=== PATIENT | male | born 1980 | race Caucasian/White ===

== ENCOUNTER 2016-09-14 10:21 | Day surgery (SDC) | payer OTHER ==
--- NOTE | 2016-09-07 13:42 | HISTORY AND PHYSICAL E ---
History and Physical NAME: BILLY ALMEIDA : 1980 AGE: 36Y ADMITTED: 09/14/2016 ROOM: REFERRING: Patient referred to us by GHADA. CHIEF COMPLAINT: A 36-year-old patient with reflux and heartburn. Nexium not helping. SOCIAL HISTORY: Does not smoke. Does not drink. PAST SURGICAL HISTORY: He did have upper scope in [place] and he was told he had grade C esophagitis. PAST MEDICAL HISTORY: 1. He has a left inguinal hernia. 2. right knee. REVIEW OF SYSTEMS: CARDIAC: High cholesterol. ENDOCRINE: Negative. RESPIRATORY: History of obstructive sleep apnea, on CPAP. HEAD, EYES, EARS, NOSE, THROAT: Loss of hearing on the left. GASTROINTESTINAL: Constipation and reflux. ONCOLOGY: Negative. HEMATOLOGY: Negative. NEUROPSYCH: Anxiety. FAMILY HISTORY: Father is alive. Mom is alive. MEDICATIONS: 1. [place]. 2. Aspirin. 3. OxyContin. 4. Vitamin D. 5. Stool softener. 6. Metamucil. 7. Nexium. PHYSICAL EXAMINATION: GENERAL: Pleasant, alert and oriented. VITAL SIGNS: Blood pressure is 120/80, pulse 80, respirations 18, temperature is 98. HEAD, EYES, EARS, NOSE, THROAT: Normal. NECK: Supple. CARDIOVASCULAR: Normal. LUNGS: Clear. ABDOMEN: Soft. NEUROLOGIC: Exam negative. CONCLUSION: 1. Abdominal pain. 2. Reflux. PLAN: Upper scope. Admit 09/14/2016. DICTATING PHYSICIAN: LESLIE HERRERA M.D. [id number] Y#: [id number] ID: [id number] JOB#: [id number] ACCT: [id number] cc:LESLIE HERRERA M.D. >
[~2016-09-14 10:21] MED LIST: EPINEPHRINE INJ 1 MG/10 ML DISP.SYRIN ONE; FENTANYL CITRATE INJ/PF 100 MCG/2 ML AMPUL ONE; FLUMAZENIL INJ 0.5 MG/5 ML VIAL IV ONE; GLYCOPYRROLATE INJ 0.4 MG/2 ML VIAL ONE; NALOXONE HCL INJ/PF 0.4 MG/1 ML SDV ONE; ONDANSETRON HCL INJ/PF 4 MG/2 ML SDV ONE; PROMETHAZINE HCL INJ 25 MG/1 ML VIAL ONE
[2016-09-14] MEDS: MIDAZOLAM 2 MG/2 ML INJ ONE ×4 (10:51→10:59)
--- NOTE | 2016-09-14 11:23 | OPERATIVE REPORT E ---
Operative Report NAME: BILLY ALMEIDA : 1980 AGE: 36Y DATE OF SURGERY: 09/14/2016 ROOM: PREOPERATIVE DIAGNOSIS: Reflux. POSTOPERATIVE DIAGNOSES: 1. Esophagitis, mild. 2. Gastritis, moderate. 3. Duodenitis, mild. OPERATIONS: 1. Esophagoscopy. 2. Gastroscopy. 3. Duodenoscopy. SURGEON: LESLIE HERRERA M.D. ANESTHESIA: Versed 4 mg, fentanyl 100 mcg. TISSUE REMOVED OR ALTERED: Gastric bypass, H. pylori. PROCEDURE: Baby scope passed under guided vision. No difficulties. Esophagogastric junction at 38 cm. Mild esophagitis. No stricture. No ulcers. Gastroscopy: Prepyloric erosions. Erosive gastritis. Biopsy obtained, H. pylori. Duodenoscopy: Mild duodenitis. No ulcers. CONCLUSIONS: 1. Mild esophagitis. 2. Moderate erosive gastritis in the antrum. 3. Duodenitis. DISCHARGE PLAN: Hold aspirin, nonsteroidal. Continue PPI. Awaiting biopsy results. DICTATING PHYSICIAN: LESLIE HERRERA M.D. [id number] PHY#: [id number] ID: [id number] JOB#: [id number] ACCT: [id number] cc:[facility], LESLIE HERRERA M.D. >
[2016-09-14 12:12] VITALS: BP 108/56
--- NOTE | 2016-09-14 12:14 | DISCHARGE SUMMARY E ---
Discharge Summary NAME: BILLY ALMEIDA : 1980 AGE: 36Y ADMITTED: 09/14/2016 DISCHARGED: 09/14/2016 PROCEDURE: EGD and biopsy. HISTORY: This 36-year-old male presented with reflux. Upper scope shows no evidence of ulcers. Patient did have erosive gastritis, mild esophagitis and mild duodenitis. DISCHARGE PLAN: 1. Try to hold aspirin. Patient takes [place]. 2. We will start him on PPI, Nexium. 3. Patient to see us in the office in the next few days. FINAL DIAGNOSIS: Esophagitis, gastritis, duodenitis. PLAN: 1. Nexium 40 mg once daily. 2. Awaiting biopsy results. DICTATING PHYSICIAN: LESLIE HERRERA M.D. [id number] [id number] PHY#: [id number] ID: [id number] JOB#: [id number] ACCT: [id number] cc:LESLIE HERRERA M.D. >
== END 2016-09-14 12:10 | disposition home or self-care (01) ==
LOC: END 10:21
PROVIDERS: ATTEND Specialist
PROC: 0DB68ZX Excision of Stomach, Via Natural or Artificial Opening Endoscopic, Diagnostic (ICD-10-PCS; principal; 2016-09-14 11:00)
DX: K21.0 Gastro-esophageal reflux disease with esophagitis (principal); K29.50 Unspecified chronic gastritis without bleeding; B96.81 Helicobacter pylori [H. pylori] as the cause of diseases classified elsewhere; K29.80 Duodenitis without bleeding; E78.00 Pure hypercholesterolemia, unspecified; J44.9 Chronic obstructive pulmonary disease, unspecified; Z79.82 Long term (current) use of aspirin; Z79.899 Other long term (current) drug therapy; Z98.84 Bariatric surgery status; Z79.891 Long term (current) use of opiate analgesic
CPT/HCPCS: 43239; 88342 ×2; 88305 ×2; J2250; J3010; J2405; J0171; J2310; J2550; J3490

== ENCOUNTER 2019-12-05 01:01 | Emergency (ER) | payer OTHER ==
[2019-12-05] MEDS ORDERED: ONDANSETRON HCL INJ/PF 4 MG/2 ML SDV IV ONE (01:47)
[2019-12-05] MEDS ORDERED: NORMAL SALINE 1000 ML 1,000 ML IV ONE (01:47)
[2019-12-05] MEDS ORDERED: KETOROLAC TROMETHAMINE INJ/PF 30 MG/1 ML SDV IV ONE (01:47)
--- NOTE | 2019-12-05 01:48 | ER Document Report ---
ED General - General Chief Complaint: Abdominal Pain Stated Complaint: ABDOMINAL PAIN/BODY CHILLS Time Seen by Provider: 12/05/19 01:22 Notes: Patient is a 39-year-old male that comes to the emergency department for chief complaint of feeling body aches, chills, and developing sharp pains in waves occasionally across his upper abdomen and lower ribs. Symptoms started earlier today. He also reports he had heartburn earlier. He denies difficulty breathing, he states earlier he was nauseated but he did not vomit. He denies specific back pain but did feel some general aching across his back. He had a headache earlier but not now. He denies sore throat. He did just travel to [place] and recently got back. He states he takes diclofenac for arthritis but no other daily medications, he drinks occasionally, smokes occasionally, den ies recreational drugs. He has had inguinal hernia repair, left hip and bilateral knee replacements. He denies medical history otherwise. He denies any obvious sick contacts. TRAVEL OUTSIDE OF THE [place] IN LAST 30 DAYS: No - Related Data Allergies/Adverse Reactions: No Known Allergies Allergy (Unverified 09/14/16 10:31) Past Medical History - General Information source: Patient - Social History Smoking Status: Never Smoker Frequency of alcohol use: Occasional Drug Abuse: None Lives with: Family Family History: Reviewed & Not Pertinent - Past Medical History Cardiac Medical History: Denies: Hx Coronary Artery Disease, Hx Heart Attack, Hx Hypertension Pulmonary Medical History: Denies: Hx Asthma, Hx Bronchitis, Hx COPD, Hx Pneumonia Neurological Medical History: Denies: Hx Cerebrovascular Accident, Hx Seizures Musculoskeletal Medical History: Reports Hx Arthritis - Immunizations Hx Diphtheria, Pertussis, Tetanus Vaccination: Yes Review of Systems - Review of Systems Constitutional: See HPI EENT: No symptoms reported Cardiovascular: No symptoms reported Respiratory: No symptoms reported Gastrointestinal: See HPI Genitourinary: See HPI Male Genitourinary: No symptoms reported Musculoskeletal: No symptoms reported Skin: No symptoms reported Hematologic/Lymphatic: No symptoms reported Neurological/Psychological: No symptoms reported Physical Exam - Vital signs Vitals: Temp 99.5 F 12/05/19 01:15 - Notes Notes: GENERAL: Patient appears slightly uncomfortable and is mildly ill-appearing but he is not severely toxic or noted to be in distress HEAD: Normocephalic, atraumatic. EYES: Pupils equal, round, and reactive to light. Extraocular movements intact. ENT: Oral mucosa dry, tongue midline. Oropharynx unremarkable. Airway patent. Nares patent, sinuses non-tender NECK: Full range of motion. Supple. Trachea midline. No lymphadenopathy. No nuchal rigidity. LUNGS: Clear to auscultation bilaterally, no wheezes, rales, or rhonchi. No respiratory distress. Non-tender chest wall. HEART: Regular rate and rhythm. No murmur ABDOMEN: There is some generalized mid upper abdominal tenderness, nonspecific, no guarding. GENITOURINARY: Deferred EXTREMITIES: Moves all 4 extremities spontaneously. No edema, normal radial and dorsalis pedis pulses bilaterally. No cyanosis. BACK: No noted CVA tenderness. No cervical, thoracic, lumbar midline tenderness. No saddle anesthesia, normal distal neurovascular exam. Moves all extremities in full range of motion. NEUROLOGICAL: Alert and oriented x3. Normal speech. Cranial nerves II through XII grossly intact. Strength 5/5 in all extremities. PSYCH: Normal affect, normal mood. SKIN: Slightly flushed Course - Re-evaluation Re-evalutation: CBC unremarkable, chemistry shows mildly elevated LFTs, urinalysis shows white blood cells with leukocyte esterase but no nitrites or bacteria. I reevaluated patient. He still has very mild upper abdominal tenderness on palpation but he states that after medications his symptoms are resolved. He states he feels much better. I asked patient about urinary symptoms again, he states that it hurts in the perineal area, he indicates. Patient is also had nausea, flank pain, abdominal pain, we discussed options and decision was made to perform CT to rule out obstructive stone. CT was negative for obstructing stone but does show enteritis. He denies any genital pain, discharge, he states she has not been sexually active in over half a year. Based on his urine and his location of pain I suspect prostatitis, recommended exam of the prostate but patient declined. We will culture and treat with Cipro for suspected prostatitis, enteritis. I also discussed with patient and decision was made to perform hepatitis panel because of his elevated LFTs, recent travel, overall symptoms. Discussed follow-up and return cautions. Patient states appreciation and agreement. Stable, well-appearing, asymptomatic at time of discharge. - Vital Signs Vital signs: Temp Pulse Resp BP Pulse Ox 98.2 F 65 20 113/65 96 12/05/19 04:27 12/05/19 04:27 12/05/19 04:27 12/05/19 04:27 12/05/19 04:27 - Laboratory Result Diagrams: 12/05/19 01:15 12/05/19 01:15 Laboratory results interpreted by me: 12/05/19 12/05/19 12/05/19 01:15 01:15 01:15 Lymph % (Auto) 8.7 L [place] % (Auto) 2.8 L Seg Neutrophils % 86.4 H Carbon Dioxide 31 H AST 138 H ALT 114 H Ur Leukocyte Esterase MODERATE H Urine Ascorbic Acid 20 H Discharge - Discharge Clinical Impression: Nausea, Urinary symptom or sign Abdominal pain Qualifiers: Abdominal location: generalized Qualified Code(s): R10.84 - Generalized abdominal pain Condition: Stable Disposition: HOME, SELF-CARE Additional Instructions: Your work-up shows inflammation of your small bowel, I also suspect that you have prostatitis based on your evaluation and work-up. Recommendation is to take the antibiotic as prescribed to completion. Take Phenergan if needed for nausea. Take Tylenol or ibuprofen for body aches, pain, or chills. Drink plenty of fluids and rest. We do have hepatitis panel pending and you will be contacted for any concerning results. Do not engage in intense physical activity while on the antibiotic as discussed. Follow-up with primary care. Return if you worsen including severe worsening pain in your abdomen, spiking fevers, vomiting, or any other concerning or worsening symptoms. Prescriptions: Ciprofloxacin HCl [Cipro 500 mg Tablet] 500 mg PO BID 14 Days #28 tablet Promethazine HCl [Phenergan 25 mg Tablet] 25 mg PO Q6H PRN #20 tablet PRN Reason: Forms: Return to Work
[2019-12-05 02:23] LABS: ALBUMIN 4.4 g/dL (3.5-5.0); ALKALINE PHOSPHATASE 85 U/L (38-126); ANION GAP 7 (5-19); ASPARTATE AMINO TRANSFERASE 138 U/L (17-59); BILIRUBIN,TOTAL 0.6 mg/dL (0.2-1.3); BLOOD UREA NITROGEN 18 mg/dL (7-20); CALCIUM 9.2 mg/dL (8.4-10.2); CARBON DIOXIDE 31 mmol/L (22-30); CHLORIDE 101 mmol/L (98-107); GLUCOSE 99 mg/dL (75-110); POTASSIUM 4.4 mmol/L (3.6-5.0); TOTAL PROTEIN 7.5 g/dL (6.3-8.2)
[2019-12-05 02:35] LABS: ABSOLUTE EOSINOPHILS # (AUTO) 0.1 10^3/uL (0.0-0.6); ABSOLUTE LYMPHOCYTES (AUTO) 0.7 10^3/uL (0.5-4.7); ABSOLUTE MONOCYTES (AUTO) 0.2 10^3/uL (0.1-1.4); BASOPHILS % (AUTO) 0.3 % (0-2); EOSINOPHILS % (AUTO) 1.8 % (0-6); HEMATOCRIT 45.6 % (37.9-51.0); HEMOGLOBIN 15.9 g/dL (13.5-17.0); LYMPHOCYTES % (AUTO) 8.7 % (13-45); MEAN CORPUSCULAR HEMOGLOBIN 30.5 pg (27.0-33.4); MEAN CORPUSCULAR HGB CONC 34.9 g/dL (32.0-36.0); MEAN CORPUSCULAR VOLUME 87 fl (80-97); MONOCYTES % (AUTO) 2.8 % (3-13); PLATELET COUNT 249 10^3/uL (150-450); RED BLOOD COUNT 5.22 10^6/uL (4.35-5.55); SEGMENTED NEUTROPHILS % (AUTO) 86.4 % (42-78); TOTAL CELLS COUNTED % (AUTO) 100 %; WHITE BLOOD COUNT 8.1 10^3/uL (4.0-10.5)
[2019-12-05 02:38] LABS: APPEARANCE,URINE SLIGHTLY-CLOUDY; BILIRUBIN,URINE NEGATIVE (NEGATIVE); COLOR,URINE YELLOW; GLUCOSE, URINE NEGATIVE (NEGATIVE); KETONES,URINE NEGATIVE (NEGATIVE); LEUKOCYTE ESTERASE,URINE MODERATE (NEGATIVE); NITRITE,URINE NEGATIVE (NEGATIVE); PROTEIN,URINE NEGATIVE (NEGATIVE); URINE SPECIFIC GRAVITY 1.019; UROBILINOGEN,URINE NEGATIVE mg/dL (<2.0)
[2019-12-05 04:28] VITALS: BP 113/65
--- NOTE | 2019-12-05 04:32 | RADIOLOGY REPORT (SQ) ---
EXAM DESCRIPTION: XR CHEST 1 VIEW COMPLETED DATE/TME: 12/05/2019 01:46 CLINICAL HISTORY: 39 years Male, anterior lower rib pain, chills COMPARISON: None. NUMBER OF VIEWS/TECHNIQUE: 1/AP FINDINGS: Adequate lung volume, clear parenchyma, normal cardiac silhouette, and intact bony thorax. IMPRESSION: No acute cardiopulmonary findings.
--- NOTE | 2019-12-05 04:36 | RADIOLOGY REPORT (SQ) ---
EXAM DESCRIPTION: CT ABDOMEN PELVIS WITHOUT IV CONTRAST COMPLETED DATE/TME: 12/05/2019 03:53 CLINICAL HISTORY: 39 years Male, EPIGASTRIC R flank pain, nausea, chills, UTI Comparison: None. Technique: No contrast. Coronal and sagittal reformat. This exam was performed according to our departmental dose-optimization program, which includes automated exposure control, adjustment of the mA and/or kV according to patient size and/or use of iterative reconstruction technique.[facility]: Dose Right [facility]: CareDose [facility]: Dose Right [facility]: Teradose 4D [facility]: GroundedPower LIMITATIONS: None Findings: 2.6 cm diameter jejunal bowel with air-fluid levels may indicate mild ileus. Stool retention. No ascites. No pneumoperitoneum. Normal appendix. No gross evidence of gallbladder inflammation, hepatobiliary obstruction, or portal vein defect. No hydronephrosis or hydroureter. No renal/ureteral stone. No evidence of abdominal aortic aneurysm. No gross evidence of thecal sac/cord or nerve root compression. Unenhanced lower thorax, abdominopelvic structures, and musculoskeleton appear otherwise grossly unremarkable. Impression: Mild jejunal ileus/enteritis.
[2019-12-05] MEDS ORDERED: CIPROFLOXACIN HCL 500 MG TABLET PO ONE (05:05)
[2019-12-06 07:37] LABS: HEPATITS B SURFACE ANTIGEN Negative (Negative)
[2019-12-06 11:57] LABS: HEPATITIS C VIRUS ANTIBODY <0.1 s/co ratio (0.0-0.9)
== END 2019-12-05 05:31 | disposition home or self-care (01) ==
LOC: ER 01:01
DX: R10.84 Generalized abdominal pain (principal); R39.198 Other difficulties with micturition; R11.0 Nausea; M79.10 Myalgia, unspecified site; R10.10 Upper abdominal pain, unspecified; R07.81 Pleurodynia; R51 Headache
CPT/HCPCS: 99284; 96361; 96374; 96375; 36415; 87086; 83690; 85025; 80053; 81001; 80074; 71045; 74176; J1885; J2405; J7030